=== PATIENT | female | born 1990 | race Caucasian/White ===

== ENCOUNTER 2016-05-12 04:33 | Emergency (ER) | payer SELFPAY ==
[~2016-05-12] VITALS: Ht 157.5 cm; Wt 44.9 kg
[2016-05-12] MEDS ORDERED: NKM (04:43)
--- NOTE | 2016-05-12 04:58 | Emergency Room Report ---
History of Present Illness General Chief Complaint: Laceration Source: Patient Present Illness HPI Is a 26-year-old female who is right-hand dominant. She presents with right hand injury. This occurred just prior to arrival. Her friend closed her car door on her finger. Sustained laceration to the third and fourth finger distally. Pain is 8/10. Worse with movement. No other injury. Allergies: Coded Allergies: No Known Allergies (Unverified , 05/12/16) Patient History Past Medical History: see triage record, old chart reviewed Past Surgical History: none Pertinent Family History: none Social History: Denies: smoking Last Menstrual Period: 2 months ago Now: No Immunizations: other Reviewed Nursing Documentation: PMH: Agreed, PSxH: Agreed Nursing Documentation-PMH Past Medical History: No Stated History Review of Systems Eye: Denies: blurred vision, eye pain ENT: Denies: ear pain, nose congestion, throat swelling Respiratory: Denies: cough, shortness of breath Cardiovascular: Denies: chest pain, palpitations Gastrointestinal: Denies: abdominal pain, diarrhea, nausea, vomiting Musculoskeletal: Reports: joint pain, joint swelling, Denies: back pain Skin: Denies: rash Neurological: Denies: headache, numbness Endocrine: Denies: increased thirst, increased urine Hematologic/Lymphatic: Denies: easy bruising All Other Systems: negative except mentioned in HPI Physical Exam Vital Signs Date Time Temp Pulse Resp B/P Pulse Ox O2 Delivery O2 Flow Rate FiO2 05/12/16 04:37 99.7 113 18 109/71 97 vitals unremarkable Sp02 EP Interpretation: reviewed, normal General Appearance: well appearing, no apparent distress, alert Head: normocephalic, atraumatic Eyes: bilateral eye EOMI, bilateral eye PERRL ENT: hearing grossly normal, normal pharynx Neck: full range of motion, supple, no meningismus Respiratory: chest non-tender, lungs clear, normal breath sounds Cardiovascular #1: regular rate, rhythm, no murmur Gastrointestinal: normal bowel sounds, non tender, no mass, no organomegaly, no bruit, non-distended Musculoskeletal: back normal, gait/station normal, normal range of motion, other - She has a laceration to the third and fourth finger distally. Decreased range of motion secondary to pain. No deformity. Neurologic: alert, oriented x3 Psychiatric: mood/affect normal Skin: warm/dry Procedures Splinting Splinting : Consent: Verbal Location: right 3rd finger Pre-Made Type: metal Pre-Proc Neuro Vasc Exam: normal Post-Proc Neuro Vasc Exam: normal Patient Tolerated: Well Complications: None Laceration/Wound Repair Laceration/Wound Repair : Consent: Verbal Wound Location: upper extremity Wound's Depth, Shape: superficial Wound Length (cm): 1 Wound Explored: clean Irrigated w/ Saline (ccs): 1000 Betadine Prep?: Yes Anesthesia: 1% Lidocaine Volume Anesthetic (ccs): 1 Suture Size/Type: 6:0, proline Number of Sutures: 3 Layer Closure?: No Sterile Dressing Applied?: Yes Splint Applied?: Yes Type of Splint Applied: metal finger Sling Applied?: Yes Patient Tolerated: Well Complications: None Medical Decision Making Diagnostic Impression: Primary Impression: Laceration of finger of right hand Qualified Codes: S61.219A - Laceration without foreign body of unspecified finger without damage to nail, initial encounter Additional Impression: Finger contusion Qualified Codes: S60.041A - Contusion of right ring finger without damage to nail, initial encounter ER Course Patient presents with a contusion and laceration. No fracture. Low risk for infection. The one on the third finger superficial. Right ring finger require suturing. Is only 1 cm. Other X-Ray Diagnostic Results Other X-Ray Diagnostic Results : X-Ray Ordered: Right hand x-rays Date: May 12, 2016 Time: 05:47 EP Interpretation: Yes Findings: no fractures, no dislocation, no soft tissue swelling Number of Views: 3 Last Vital Signs Date Time Temp Pulse Resp B/P Pulse Ox O2 Delivery O2 Flow Rate FiO2 05/12/16 04:37 99.7 113 18 109/71 97 Status: improved Disposition: HOME, SELF-CARE Condition: Stable Scripts Ibuprofen* (MOTRIN*) 600 Mg Tablet 600 MG ORAL THREE TIMES A DAY, #30 TAB 0 Refills Prov: KISHOR LOMBARDI M.D. 05/12/16 Referrals: NOT CHOSEN [facility]/,REFERRING (PCP) Patient Instructions: Laceration Care, Adult Additional Instructions: Elevate hand. Suture out in 7-10 days. Return if worse. KISHOR LOMBARDI M.D. May 12, 2016 04:58
[2016-05-12] MEDS ORDERED: Norco 5mg/325mg tab ORAL ONE (05:00)
[2016-05-12] MEDS ORDERED: IBUPROFEN600 MG ORAL (05:47)
[2016-05-12 05:51] VITALS: BP 109/71
--- NOTE | 2016-05-14 08:34 | Diagnostic Imaging Report ---
Indication: Right hand trauma Technique: Right hand 3 views Comparison: None Findings: There is no acute fracture or dislocation. There is no gross radiopaque foreign body. Bone mineralization is normal. Impression: No acute osseous abnormality.
== END 2016-05-12 05:53 | disposition home or self-care (01) ==
LOC: EMR 04:44
DX: S61.212A Laceration without foreign body of right middle finger without damage to nail, initial encounter (principal); S61.214A Laceration without foreign body of right ring finger without damage to nail, initial encounter; W22.8XXA Striking against or struck by other objects, initial encounter; Y92.810 Car as the place of occurrence of the external cause
CPT/HCPCS: 29280